=== PATIENT | male | born 1960 | race Caucasian/White ===

== ENCOUNTER 2017-11-22 12:54 | Emergency (ER) | payer SELFPAY ==
[~2017-11-22] VITALS: Ht 180.3 cm; Wt 118.0 kg
[~2017-11-22 12:54] MED LIST: ATOR20TA42 PO; DOXY100T PO; IBUP800 PO; METF500 PO
[2017-11-22 12:56] VITALS: BP 138/80; PULSE 93; RESP 12; TEMP 97.9; O2SAT 95
[2017-11-22] MEDS ORDERED: LIDOCAINE HCL 1% 50 ML VIAL INFIL ONE (13:15)
[2017-11-22] MEDS ORDERED: CLIN300C5 PO (13:51)
[2017-11-22] MEDS ORDERED: DOXY100C PO (13:51)
--- NOTE | 2017-11-22 13:51 | PD ---
HPI Chief Complaint: Skin Problem Time Seen by Provider: 13:13 Travel History International Travel<30 days: No Contact w/Intl Traveler<30days: No Traveled to known affect area: No History of Present Illness HPI 57-year-old male patient presents to the ER today, states that he has had one- week history of area of redness, swelling, and drainage on his back, had been seen last week by [facility] and had been put on Bactrim, had a I&D done. However, he states that a week has gone by with antibiotics and he is still having drainage from the area, and the area has not gone away. He states that there is an area that has been more swollen as well. He denies any fevers or any other issues. Modifying Factors: None Associated Signs & Symptoms: Back area redness, swelling Risk Factors: Had I&D done earlier last week PFSH Past Medical History Blood Disorders: No Cancer: No Cardiovascular Problems: No Diminished Hearing: No Endocrine: No Genitourinary: No Immune Disorder: No Musculoskeletal: No Neurologic: No Psychiatric: No Reproductive: No Respiratory: No Immunizations Current: Yes Influenza Vaccination: No Past Surgical History Tonsillectomy: Yes Social History Alcohol Use: No Tobacco Use: Yes (1PPD) Substance Use: No (marijuana daily-PT DENIES) Allergies-Medications (Allergen,Severity, Reaction): Coded Allergies: No Known Allergies (Unverified Adverse Reaction, Unknown, 11/22/17) Reported Meds & Prescriptions Reported Meds & Active Scripts Active Review of Systems Except as stated in HPI: all other systems reviewed are Neg Physical Exam Narrative GENERAL: Well-developed middle age white male patient currently none acute distress. Awake and oriented 3. SKIN: Focused skin assessment warm/dry. There is a notable 5 x 7 cm area of induration, mild tenderness, erythema on the right paraspinal area in the mid back region. There is a small wound that is draining small amount of pus. HEAD: Atraumatic. Normocephalic. EYES: Pupils equal and round. No scleral icterus. No injection or drainage. ENT: No nasal bleeding or discharge. Mucous membranes pink and moist. NECK: Trachea midline. No JVD. CARDIOVASCULAR: Regular rate and rhythm. No murmur appreciated. RESPIRATORY: No accessory muscle use. Clear to auscultation. Breath sounds equal bilaterally. GASTROINTESTINAL: Abdomen soft, non-tender, nondistended. Hepatic and splenic margins not palpable. MUSCULOSKELETAL: No obvious deformities. No clubbing. No cyanosis. No edema. NEUROLOGICAL: Awake and alert. No obvious cranial nerve deficits. Motor grossly within normal limits. Normal speech. PSYCHIATRIC: Appropriate mood and affect; insight and judgment normal. Data Data Last Documented VS Vital Signs Date Time Temp Pulse Resp B/P (MAP) Pulse Ox O2 Delivery O2 Flow Rate FiO2 11/22/17 13:06 18 11/22/17 12:56 97.9 93 138/80 (99) 95 Orders Orders Lidocaine 1% Inj (50 Ml) (Xylocaine 1% I (11/22/17 13:15) Wound Culture And Gram Stain (11/22/17 13:43) MDM Medical Decision Making Medical Screen Exam Complete: Yes Emergency Medical Condition: Yes Medical Record Reviewed: Yes Differential Diagnosis Abscess versus cellulitis Narrative Course I have tried to do an I&D on this area but there is very little pus to be drained. Pus appears to be draining from the old wound to some degree. At this point, my plan would be to try different antibiotics and have her follow- up with a daily a clinic. He should return for any worsening in redness, pain, and as needed. Wound check in 2-3 days. The plan was discussed with him and he states understanding. Diagnosis Primary Impression: Cellulitis of back Referrals: [facility] Med/Other Pt SpecificInfo: Prescription(s) given Scripts Clindamycin (Clindamycin) 300 Mg Cap 300 MG PO TID for Infection, #21 CAP 0 Refills Prov: Ryan Almaguer MD 11/22/17 Doxycycline Hyclate (Doxycycline Hyclate) 100 Mg Cap 100 MG PO BID for Infection for 7 Days, #14 CAP 0 Refills Prov: Ryan Almaguer MD 11/22/17 Disposition: DISCHARGE HOME Condition: Stable Ryan Almaguer MD Nov 22, 2017 13:51
== END 2017-11-22 14:01 | disposition home or self-care (01) ==
LOC: NEPD 12:54
DX: L03.312 Cellulitis of back [any part except buttock and flank] (principal); A49.02 Methicillin resistant Staphylococcus aureus infection, unspecified site; F17.200 Nicotine dependence, unspecified, uncomplicated
CPT/HCPCS: 86403; 87070; 87186; 99284